=== PATIENT | male | born 1995 | race Caucasian/White ===

== ENCOUNTER 2016-11-26 18:43 | Emergency (ER) | payer BC ==
[2016-11-26 18:51] VITALS: BP 132/65; PULSE 59; TEMP 97.5; BMI 22.1
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
== END 2016-11-26 20:23 | disposition home or self-care (01) ==
LOC: JERFT 18:43
PROC: 2W3CX1Z Immobilization of Right Lower Arm using Splint (ICD-10-PCS; principal; 2016-11-26)
DX: S62.316A Displaced fracture of base of fifth metacarpal bone, right hand, initial encounter for closed fracture (principal); W22.8XXA Striking against or struck by other objects, initial encounter; Y93.89 Activity, other specified; Y92.89 Other specified places as the place of occurrence of the external cause
CPT/HCPCS: 73110-TC-RT; 73130-TC-RT; 99281-25